=== PATIENT | male | born 1985 | race African-American/Black ===

== ENCOUNTER 2021-12-05 21:06 | Emergency (ER) | payer SELFPAY ==
[~2021-12-05] VITALS: Ht 188 cm; Wt 220.0 kg
[2021-12-05] MEDS ORDERED: ACETAMINOPHEN 500 MG TAB PO ONE ×2 (21:10→21:12)
[2021-12-05 21:13] VITALS: BP 153/95
== END 2021-12-05 23:19 | disposition left against medical advice (07) ==
LOC: ER 21:06
DX: K08.89 Other specified disorders of teeth and supporting structures (principal); Z53.21 Procedure and treatment not carried out due to patient leaving prior to being seen by health care provider